=== PATIENT | male | born 1965 | race African-American/Black ===

== ENCOUNTER 2023-01-13 20:46 | Emergency (ER) | payer SELFPAY ==
--- NOTE | ~2023-01-13 | XR_ITS ---
EXAMINATION: XR CHEST CLINICAL INFORMATION: Cough. Chest pain. COMPARISON: None available. TECHNIQUE: 2 views of the chest were obtained. FINDINGS: The cardiac silhouette is within normal limits. There is a prominent ascending aortic silhouette. There is no focal lung consolidation or pleural effusion. The bony structures and soft tissues are unremarkable. XR/XR chest 2V IMPRESSION: No active cardiopulmonary disease. Prominent ascending aortic silhouette likely related to tortuous course of the aorta versus ectasia.
--- NOTE | 2023-01-13 20:48 | ECG_ITS ---
Test Reason : CHEST PAIN Blood Pressure : / mmHG Vent. Rate : 088 BPM Atrial Rate : 088 BPM P-R Int : 124 ms QRS Dur : 078 ms QT Int : 342 ms P-R-T Axes : 076 011 032 degrees QTc Int : 413 ms Normal sinus rhythm Minimal voltage criteria for LVH, may be normal variant ( Sokolow-Hager ) Borderline ECG No previous ECGs available Referred By: Wendi Figueroa Electronically Signed By:ROSEANN HADLEY MD
[2023-01-13 21:15] VITALS: BP 198/108; PULSE 89; RESP 18; TEMP 36.3; O2SAT 95; BMI 22.7
[2023-01-13 23:42] LABS: Influenza A PCR NEGATIVE (Negative); Influenza B PCR NEGATIVE (Negative); Resp Syncy Virus RNA Qual PCR POSITIVE (Negative); SARS COV2 PCR INHOUSE NEGATIVE (Negative)
[2023-01-14 01:00] VITALS: BP 189/104; PULSE 79; RESP 18; O2SAT 95
--- NOTE | 2023-01-14 01:28 | ED_ITS ---
HPI - URI/Sore Throat General Chief Complaint: Upper Respiratory Symptoms Stated Complaint: chest pain Time Seen by Provider: 01/14/23 01:07 Source: patient, RN notes reviewed and old records reviewed Mode of arrival: ambulatory History of Present Illness HPI Narrative: 57-year-old male with no significant past medical history presenting to the ED complaining of dry cough, chest discomfort with coughing, rhinorrhea/nasal congestion and myalgias x 3 days. Patient admits he is visiting from [place], returns home next week. Denies fever/chills, sore throat, ear pain, shortness of breath MD elicited complaint: cough, rhinorrhea and nasal congestion Related Data Previous Rx's Medication Instructions Recorded benzonatate 100 mg capsule 100 mg PO TID PRN cough #14 caps 01/14/23 Allergies Allergy/AdvReac Type Severity Reaction Status Date / Time lactose AdvReac Nausea and Verified 01/13/23 21:14 Vomiting Review of Systems Review of Systems: Constitutional: No Fever, No Chills ENT/Mouth: No Ear Pain, + Nasal Congestion, No sore throat, + Rhinorrhea, No Swallowing Difficulty Cardiovascular: + Chest Pain w/cough, No SOB Respiratory: + Cough, No Sputum, No Wheezing Gastrointestinal: No Nausea, No Vomiting, No Abdominal pain Genitourinary: No Dysuria, No Urinary Frequency, No Urgency, No Flank Pain Musculoskeletal: No joint pain, + Myalgias, No Joint Swelling Skin: No Skin Lesions, No rash Neuro: No Weakness, No Numbness, No Paresthesias Yes all other systems are reviewed and are negative Constitutional: Constitutional: Reports as per [facility] Past Medical History Attestation statement: The following information was validated with the patient. Source: old records reviewed Social History Social History Advance Directives: No Advance Directives Information Provided: No Physical Exam Vital Signs: Vital Signs: Last Vital Signs Temp 97.3 F 01/13/23 21:15 Pulse 77 01/14/23 01:34 Resp 19 01/14/23 01:34 BP 179/104 H 01/14/23 01:34 Pulse Ox 97 01/14/23 01:34 O2 Del Method Room Air 01/14/23 01:34 BMI result Body Mass Index 22.7 Const: General: cooperative, healthy appearing and no acute distress Orientation/consciousness: patient oriented x3 Limitations: no limitations HEENT: Head: Yes normal to inspection and Yes atraumatic Ears: hearing grossly normal bilaterally General nose exam: Normal external nose present Face and sinus: Yes normal facial exam Eyes: General: appearance normal, both eyes and all related structures EOM: EOMs intact bilaterally Neck: Neck: Yes normal visual inspection and Yes no meningeal signs Resp: Effort & Inspection: normal respiratory effort and no respiratory distress Auscultation: clear to auscultation bilaterally, no crackles, no rales, no rhonchi and no wheezes Cardio: Rate: regular rate Heart sounds: S1 normal heart sound present and S2 normal heart sound present GI: Inspection: Yes normal to inspection Palpation (GI): Soft to palpation, nontender, no guarding and not rigid Skin: Rashes: no rashes Wounds: no wounds Neuro: General: patient oriented x3, tone normal and no meningeal signs Cranial nerves: Yes CN's II-XII intact bilaterally Gait exam (Neuro): Normal gait present Extrem: General: Yes normal to inspection Course Course Course Narrative: -RSV positive XR chest 2V IMPRESSION: No active cardiopulmonary disease. Prominent ascending aortic silhouette likely related to tortuous course of the aorta versus ectasia. >Results discussed with patient including worrisome signs and symptoms and strict return precautions, and when to return to the emergency department. They verbalized understanding and feel safe for discharge at this time. Medications Administered Discontinued Medications Generic Name Dose Route Start Last Admin Trade Name Freq PRN Reason Stop Dose Admin Albuterol Sulfate 4 puff 01/14/23 01:30 01/14/23 01:37 Albuterol Sulfate 90 Mcg 8 Gm Inhaler INHALE 01/14/23 01:31 4 puff ONCE ONE Administration Medical Decision Making Medical Decision Making MDM Narrative: 57-year-old male with no significant past medical history presenting to the ED complaining of dry cough, chest discomfort with coughing, rhinorrhea/nasal congestion and myalgias x 3 days. On exam hypertensive, patient is taking OTC cough medication > likely cause. Lungs CTA, oropharynx WNL. Concern for viral illness vs bronchitis vs pneumonia. Lower suspicion for ACS/PE or DVT Plan: EKG, CXR, viral testing order in triage Please refer to course for remaining clinical decision making, interpretation of labs/imaging results, and discussions with consultants and/or family members. Differential Diagnosis Differential Diagnoses: The differential diagnosis associated with the presentation includes As above Admission/Observation Consideration of admission/observation: Escalation of care including admission/observation considered Lab Data MDM Lab Attestation statement: I reviewed the patient's lab results. Labs: Lab Results 01/13/23 Range/Units 22:47 Influenza Type A (PCR) NEGATIVE (Negative) Influenza Type B (PCR) NEGATIVE (Negative) RSV RNA Qual (PCR) POSITIVE A (Negative) SARS-CoV-2 RNA (RT-PCR) NEGATIVE (Negative) Independent Interpretation I performed an independent interpretation of an: EKG (My interpretation EKG normal sinus rhythm rate of 88. DE interval 124. QTC 413. No viable priors to compare.) Radiology Impression Discussion of test interpretation with radiology: I have reviewed the radiologist's reading. External Record Review External record reviewed: Inpatient record, Office record, Outpatient record, Prior outpatient labs, Prior outpatient radiology, Primary care record and Outside ED record Tests considered The following testing was considered but not selected: As above Prescription Management I considered prescription management with: Pain Medication Discharge Plan Discharge Clinical Impression: Respiratory syncytial virus (RSV) Patient Disposition: Home, Self-Care Instructions: Respiratory Syncytial Virus (ED) Additional Instructions: You have respiratory synechia virus, RSV could. This is the cause of the common cold, however can be dangerous in babies in elderly You are contagious, wear mask, cover her mouth, wash her hands Tessalon Perles for cough, take as needed Use albuterol inhaler as needed for shortness of breath/wheezing Your blood pressure was elevated today in the emergency department, likely from her [id number] cough medication however this should be monitored by your PCP. Your x-ray does show a torturous aortic silhouette, this should be followed up with your doctor when home If symptoms persist or worsen return to the ED Prescriptions: New benzonatate 100 mg capsule 100 mg PO TID PRN (Reason: cough) Qty: 14 0RF Referrals: Physician,None [Primary Care Provider] - 3 days Interventions: ED Discharge Assessment Last Done: 01/14/23 01:44 Discharge Date/Time: 01/14/23 01:45
[2023-01-14 01:34] VITALS: BP 179/104; PULSE 77; RESP 19; O2SAT 97
[2023-01-14] MEDS: Albuterol Sulfate 90 MCG 8 GM INHALER 4 PUFF INHALE (01:37)
== END 2023-01-14 01:45 | disposition home or self-care (01) ==
PROVIDERS: Emergency Provider Student in an Organized Health Care Education/Training Program
DX: R07.89 Other chest pain (principal); B97.4 Respiratory syncytial virus as the cause of diseases classified elsewhere; R05.9 Cough, unspecified; R09.81 Nasal congestion; J34.89 Other specified disorders of nose and nasal sinuses; Z20.822 Contact with and (suspected) exposure to COVID-19; Z20.828 Contact with and (suspected) exposure to other viral communicable diseases
CPT/HCPCS: 0241U; 71046; 93005; 99284; 99285